=== PATIENT | female | born 1995 | race Caucasian/White ===

== ENCOUNTER 2019-12-11 00:29 | Outpatient (CLI) | payer MEDICAID, SELFPAY ==
--- NOTE | 2019-12-11 | DI.US_ITS ---
EXAM: US OB 1ST TRIMESTER CLINICAL HISTORY: ? SIZE AND DATES, Z34.91 FAX TO TECHNIQUE: Ultrasound performed using standard protocol. COMPARISON: US ABDOMEN LIMITED/FOLLOW UP US from 07/20/2015 FINDINGS: Ob ultrasound was performed utilizing 1st trimester protocol. There is a single viable intrauterine gestation with crown-rump length measurements consistent with gestational age of 9 weeks 2 days and E DC of 07/13/2020. heart rate is 168 BPM. Unremarkable appearance of the trophoblastic tissue. Presumed left ovarian corpus luteum cyst, 23 millimeters in diameter. IMPRESSION: DATA REPOSITORY:
== END 2019-12-11 00:49 ==
PROVIDERS: PCP Family Medicine; Visit Provider Family Medicine
DX: Z34.91 Encounter for supervision of normal pregnancy, unspecified, first trimester (principal)
CPT/HCPCS: 76801

== ENCOUNTER 2020-02-20 01:04 | Outpatient (CLI) | payer MEDICAID, SELFPAY ==
--- NOTE | 2020-02-20 | DI.US_ITS ---
EXAM: US OB 2-3 TRIMESTER CLINICAL HISTORY: NEW CRAMPING, SURVEY. TECHNIQUE: Transabdominal obstetrical ultrasound performed. COMPARISON: US US OB 1ST TRIMESTER from 12/11/2019 FINDINGS: Transabdominal obstetrical ultrasound performed. FINDINGS: Number of fetuses: One. position: Varied. heart rate: 144 bpm. Placental location: Anterior no evidence of previa. Amniotic fluid index: Amount of fluid is within normal limits. ANATOMICAL SURVEY: Within normal limits. BIOMETRIC DATA: BPD: 4.5cm HC: 16.9cm AC: 14.7cm FL: 3.2cm Cisterna Magna: 3 mm Cerebellum: 1.9 cm Composite Age: 19 weeks 5 days EDC by US: 07/11/2020 IMPRESSION: 1. Single live intrauterine gestation as above. 2. Normal anatomic survey. DATA REPOSITORY:
== END 2020-02-20 01:24 ==
PROVIDERS: PCP Family Medicine; Visit Provider Family Medicine
DX: R10.9 Unspecified abdominal pain (principal); Z34.92 Encounter for supervision of normal pregnancy, unspecified, second trimester
CPT/HCPCS: 76805

== ENCOUNTER 2020-07-01 17:27 | Inpatient (IN) | payer MEDICAID, SELFPAY ==
[2020-07-01 17:19] VITALS: TEMP 36.4
--- NOTE | 2020-07-01 17:56 | W.PM.OBHPL1 ---
Date of service: 07/01/20 Time of Service: 17:56 Assessment and Plan Assessment and plan (1) Obesity: Status: Chronic Qualifiers: Body mass index: BMI 40.0-44.9 Obesity classification: adult class 3 (BMI >= 40) Obesity type: due to excess calories Serious obesity comorbidity presence: without serious comorbidity Qualified Code(s): E66.01 - Morbid (severe) obesity due to excess calories; Z68.41 - Body mass index [BMI]40.0-44.9, adult (2) GDM (gestational diabetes mellitus): Status: Acute Assessment and plan: On Metformin 1000mg BID and Glipizide 10mg qHS, Qualifiers: Gestational diabetes mellitus control: oral hypoglycemic-controlled Trimester: third trimester Qualified Code(s): O24.415 - Gestational diabetes mellitus in , controlled by oral hypoglycemic drugs (3) : Status: Acute Assessment and plan: Given the numerous issues she is experiencing and planned induction next week, with her proteinuria and elevated BP I think it is best to get her delivered. We will do miso tonight with quiles bulb if possible. Plan for pitocin in the morning. Given her obesity and GDM, she is at increased risk of shoulder dystocia, and given her hypertension, she is at increased risk of PPH. Qualifiers: Weeks of gestation: 38 weeks Qualified Code(s): Z3A.38 - 38 weeks gestation of (4) Pre-eclampsia: Status: Acute Assessment and plan: BP not at pre eclamptic level but she has proteinuria and headache with labs trending toward worrisome. Qualifiers: Trimester: third trimester Qualified Code(s): O14.93 - Unspecified pre-eclampsia, third trimester OB-HPI Labor/Delivery History of Present Illness Reason for Visit: HYPERTENSION Chief Complaint: Scheduled Induction of Labor Indication for Induction: Gestational Diabetes and PreEclampsia; Signs/Symptoms Gestational HTN , Associated Signs and Symptoms of GestationalHTN: BP 140/100 yesterday, headache. MARITO Calculator Estimated Delivery Date Method Current WG Current Estimate 07/15/20 LMP (Certain) 38w 0d History of Present Expected Delivery Route/Plan Anticipate Assessment: History Reviewed & Current Narrative: Ashly is a 24y with Rh+ RI HepB- GBS-. complicated by ill defined renal issues with dehydration and recurrent UTIs and yeast infections. She was then diagnosed with GDM requiring Metforming 100mg BID and Glipizide 10mg daily for adequate control. She had last week an episode of bleeding that was determined to be urethral not vaginal, although cause remained unclear. This weekend, she reported worsening headache and BP was elevated at 140/100. This morning, she did have proteinuria, decreased platelets, increased P/C urine ratio, although BP normalized. She continued to feel unwell, and we decided to induce her at this point. Review of Systems All systems reviewed & are unremarkable except as noted in HPI and below PFSH Medical History GDM (gestational diabetes mellitus) with current . diet controlled. Obesity 05/2020. BMI 41. Post depression 2015. took meds briefly. not helpful. resolved. Family History Brother , in [place]. 2003 No problems noted. Father COPD (chronic obstructive pulmonary disease) Cirrhosis Maternal Grandfather Cancer lung cancer Mother Dementia early onset Acute Crohn's disease Sister Acute Crohn's disease Social History Smoking/Tobacco Use Status: Never Smoking risk assessment performed?: Yes Alcohol Intake: never Drug use: Never Substance use type: does not use Household members: significant other, children and other Details: Tez Freedman. 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 Sexually active: Yes History History 2 Para 1 Hx # Term Pregnancies 1 Multiple births Hx # Pregnancies Ectopic pregnancies AB induced Hx Number of Living Children 1 AB spontaneous Past Pregnancies Del. Date GA/Weeks # Outcome Route Wgt Sex Labor Lgth Anesthesia Location Prov Complic 10/29/15 41 No Successful vaginal 3061.748 g Female 6.5 hours other [facility] Delivery Date: 10/29/15 Yanique Wu Home Medications and Allergies Allergies Allergy/AdvReac Type Severity Reaction Status Date / Time No Known Allergies Allergy Verified 05/16/20 09:37 contrast dye Allergy Uncoded 06/13/20 09:46 Home Medications Medication Instructions Recorded Confirmed Type PNV cmb#95-ferrous fumarate-FA 1 tab PO DAILY 07/20/15 07/20/15 History [ Caplet] folic acid 1 tab PO DAILY 07/20/15 07/20/15 History glipizide 5 mg tablet 5 mg PO DAILY 06/13/20 History metformin 1,000 mg tablet,extended 1,000 mg PO BID 06/13/20 History release 24hr potassium chloride 10 mEq 10 meq PO DAILY 06/13/20 History capsule,extended release Exam Physical Exam Vital Signs Reviewed: Yes Detailed Labor and Delivery Exam Wei Score: Cervical Points Exam 0 1 2 3 Dilation Closed 1-2cm 3-4 cm 5-6cm Effacement 0-30% 40-50% 60-70% 80% Consistency Firm Medium Soft Station -3 -2 -1,0 +1,+2 Position Posterior Mid Anterior Respiratory Exam Respiratory Exam: Normal Cardiovascular Exam Cardiovascular Exam: Normal Abdominal Exam Abdominal Exam: Normal Detailed Abdominal Exam Abdominal: Present soft Comments: No right upper quadrant tenderness Detailed Extremities Exam Extremities: Present edema (trace bilateral edema) Detailed Neurological Exam Neurological: Present alert, oriented X3 and normal reflexes Results Results Group Beta Strep: Negative Blood Type: O+ Risk Assessment Risk for Shoulder Dystocia Historical/Initial OB: POSITIVE FOR: Pre- BMI>30 Increased Risk?: Yes Risk for Pre-Eclampsia Daily Dose ASA Indicated: No Risk for Post- Hemorrhage At Risk?: No Risks Reviewed Risks Reviewed Upon Admission: Yes
[2020-07-01 18:18] LABS: Source Nasal/Nares
[2020-07-01 18:31] VITALS: BP 123/74; PULSE 103; RESP 20; TEMP 36.5
[2020-07-01] MEDS: miSOPROStol 25 MCG TAB PO ×2 (18:40→22:45)
[2020-07-01 19:32] LABS: HCT 37.9 % (36.0-46.0); MCH 29.1 pg (27.0-33.0); MCHC 34.3 % (32.0-36.0); MCV 84.8 fL (80-95); MPV 12.4 fL (8.0-11.0); Platelet Count 176 10^3/uL (130-400); RBC 4.47 10^6/uL (3.93-5.22); RDW 13.2 % (11.7-14.6); WBC 10.07 10^3/uL (4.4-10.8)
[2020-07-01] MEDS: metFORMIN C.R. 500 MG TABCR 1000 MG PO (20:18)
[2020-07-01 21:59] LABS: COVID-19 PCR Negative (Negative)
[2020-07-01 22:27] VITALS: BP 109/67; PULSE 96; RESP 18; TEMP 36.7
[2020-07-02] VITALS (9 sets, daily range): BP systolic 112–138; BP diastolic 55–80; PULSE 82–109; RESP 16–18; TEMP 36.5–36.8; O2SAT 97–98
[2020-07-02] MEDS: miSOPROStol 25 MCG TAB PO ×2 (03:01→19:16)
--- NOTE | 2020-07-02 08:46 | PGE_ITS ---
Date of service: 07/02/20 Time of Service: 08:46 Informed Consent Informed Consent: Induction of Labor Pelvic Exam Dilation: 1.5 Effacement (%): 30 station: -3 Cervix Position: posterior Consistency: soft BISHOPS Score(Cervical Ripeness Score): 3 Vaginal Exam Presentation: Cephalic Contractions Monitor Mode: External Contraction Frequency(min): 3 Contraction Duration(sec): 90 Intensity: Mild Fetus A Monitor: External (US) Heart Rate Baseline: 140 Presentation: Cephalic Variability: Moderate (6-25 BPM) Categories: Category I FHR Rhythm: Regular Characteristics: Normal Accelerations: 15 X 15 Decelerations: None Amniotic Membrane Status: Intact Assessment and Plan Assessment and plan (1) : Status: Acute Assessment and plan: Although she is tiffany frequently, the are not adequate to produce cervical change, so I would like to start low dose Pitocin. She is comfortable with that plan. Qualifiers: Weeks of gestation: 38 weeks Qualified Code(s): Z3A.38 - 38 weeks gestation of (2) Pre-eclampsia: Status: Acute Assessment and plan: BPs have been in the normal range since admission, continue to monitor Qualifiers: Trimester: third trimester Qualified Code(s): O14.93 - Unspecified pre- eclampsia, third trimester (3) GDM (gestational diabetes mellitus): Status: Acute Assessment and plan: Fasting CBG today was 89. Continue oral meds. Qualifiers: Gestational diabetes mellitus control: oral hypoglycemic-controlled Trimester: third trimester Qualified Code(s): O24.415 - Gestational diabetes mellitus in , controlled by oral hypoglycemic drugs (4) Obesity: Status: Chronic Qualifiers: Obesity type: due to excess calories Obesity classification: adult class 3 (BMI >= 40) Serious obesity comorbidity presence: without serious comorbidity Body mass index: BMI 40.0-44.9 Qualified Code(s): E66.01 - Morbid (severe) obesity due to excess calories; Z68.41 - Body mass index [BMI]40.0-44.9, adult Objective Abnormal lab results 07/01/20 Range/Units 19:23 MPV 12.4 H (8.0-11.0) fL Temp Pulse Resp BP Pulse Ox 36.7 C 99 H 16 138/76 98 07/02/20 07:56 07/02/20 07:56 07/02/20 07:56 07/02/20 07:56 07/02/20 07:56 Laboratory Results WBC 10.07 10^3/uL (4.4-10.8) 07/01/20 19: RBC 4.47 10^6/uL (3.93-5.22) 07/01/20 19: Hgb 13.0 g/dL (11.2-15.7) 07/01/20 19: Hct 37.9 % (36.0-46.0) 07/01/20: MCV 84.8 fL (80-95) 07/01/20: MCH 29.1 pg (27.0-33.0) 07/01/20: MCHC 34.3 % (32.0-36.0) 07/01/20: RDW 13.2 % (11.7-14.6) 07/01/20 19: Plt Count 176 10^3/uL (130-400) 07/01/20: MPV 12.4 fL (8.0-11.0) H 07/01/20 19: COVID-19 Source Nasal/nares 07/01/20 17:30 SARS-CoV-2 (PCR) Negative (Negative) 07/01/20 17:30 Patient ABO/Rh O Positive 07/01/20 19: Antibody Screen Negative 07/01/20 19: Subjective Patient Reports: No new Complaints Interval history since last seen: iT is doing well. Got rest overnight. She recieved 3 doses of miso and did start tiffany on her own after the third dose. Has been having very mild ctx since 3am every 3 min. SVE 1-2/-3, minimal change. Results Hemoglobin/Hematocrit: Hgb 13.0 g/dL (11.2-15.7) 07/01/20 19: Hct 37.9 % (36.0-46.0) 07/01/20 19: Abnormal Lab Findings: Abnormal Labs 07/01/20: MPV 12.4 H
[2020-07-02 09:06] LABS: HCT 39.2 % (36.0-46.0); HGB 13.1 g/dL (11.2-15.7); MCH 28.6 pg (27.0-33.0); MCHC 33.4 % (32.0-36.0); MCV 85.6 fL (80-95); MPV 12.2 fL (8.0-11.0); Platelet Count 171 10^3/uL (130-400); RBC 4.58 10^6/uL (3.93-5.22); RDW 13.4 % (11.7-14.6); RDW-SD 41.4 fL; WBC 10.82 10^3/uL (4.4-10.8)
[2020-07-02] MEDS: Normal Saline Flush 10 ML SYR IVP (09:39)
[2020-07-02] MEDS: Lactated Ringers 1,000 ML 125 ML IV (09:40)
[2020-07-02] MEDS: Oxytocin/Normal Saline 30 UNIT/500 ML BAG 2 UNITS IV (09:40)
--- NOTE | 2020-07-02 14:34 | W.PM.OBPNV1 ---
Date of service: 07/02/20 Time of Service: 14:34 Subjective Subjective Patient comments: No complaints Exam Physical Exam Vital signs: Temp Pulse Resp BP Pulse Ox 36.6 C 92 H 18 133/80 98 07/02/20 13:58 07/02/20 13:58 07/02/20 13:58 07/02/20 13:58 07/02/20 07:56 Results Hemoglobin/Hematocrit: Hgb 13.1 g/dL (11.2-15.7) 07/02/20 09:00 Hct 39.2 % (36.0-46.0) 07/02/20 09:00 Abnormal Lab Findings: Abnormal Labs 07/01/20 07/02/20 19:23 09:00 WBC 10.82 H MPV 12.4 H 12.2 H
--- NOTE | 2020-07-02 14:35 | PGE_ITS ---
Date of service: 07/02/20 Time of Service: 14:35 Informed Consent Informed Consent: Induction of Labor Pelvic Exam Dilation: 1.5 Effacement (%): 40 station: -3 Position: OA Cervix Position: anterior Consistency: soft BISHOPS Score(Cervical Ripeness Score): 3 Vaginal Exam Presentation: Cephalic Contractions Monitor Mode: External Contraction Frequency(min): 2-3 Contraction Duration(sec): 60 Intensity: Mild Fetus A Monitor: External (US) Heart Rate Baseline: 150 Presentation: Cephalic Variability: Moderate (6-25 BPM) Categories: Category I FHR Rhythm: Regular Characteristics: Normal Accelerations: 15 X 15 Decelerations: None Amniotic Membrane Status: Intact Assessment and Plan Assessment and plan (1) : Status: Acute Assessment and plan: Although german has been tiffany every 2 minutes, they remain mild on 16u pitocin. Lucy Walker CNM was able to get a cook catheter placed, and I have stopped the pitocin. Will let her rest and allow cook to work. Anticipate restarting pitocin when cook comes out. Qualifiers: Weeks of gestation: 38 weeks Qualified Code(s): Z3A.38 - 38 weeks gestation of (2) Pre-eclampsia: Status: Acute Assessment and plan: pressures have been normal throughout her admission Qualifiers: Trimester: third trimester Qualified Code(s): O14.93 - Unspecified pre- eclampsia, third trimester (3) GDM (gestational diabetes mellitus): Status: Acute Assessment and plan: continues on oral meds. check fasting CBGs. Qualifiers: Gestational diabetes mellitus control: oral hypoglycemic-controlled Trimester: third trimester Qualified Code(s): O24.415 - Gestational diabetes mellitus in , controlled by oral hypoglycemic drugs (4) Obesity: Status: Chronic Qualifiers: Obesity type: due to excess calories Obesity classification: adult class 3 (BMI >= 40) Serious obesity comorbidity presence: without serious comorbidity Body mass index: BMI 40.0-44.9 Qualified Code(s): E66.01 - Morbid (severe) obesity due to excess calories; Z68.41 - Body mass index [BMI]40.0- 44.9, adult Objective Abnormal lab results 07/01/20 07/02/20 Range/Units 19:23 09:00 WBC 10.82 H (4.4-10.8) 10^3/uL MPV 12.4 H 12.2 H (8.0-11.0) fL Temp Pulse Resp BP Pulse Ox 36.6 C 92 H 18 133/80 98 07/02/20 13:58 07/02/20 13:58 07/02/20 13:58 07/02/20 13:58 07/02/20 07:56 Laboratory Results WBC 10.82 10^3/uL (4.4-10.8) H 07/02/20 09:00 RBC 4.58 10^6/uL (3.93-5.22) 07/02/20 09:00 Hgb 13.1 g/dL (11.2-15.7) 07/02/20 09:00 Hct 39.2 % (36.0-46.0) 07/02/20 09:00 MCV 85.6 fL (80-95) 07/02/20 09:00 MCH 28.6 pg (27.0-33.0) 07/02/20 09:00 MCHC 33.4 % (32.0-36.0) 07/02/20 09:00 RDW 13.4 % (11.7-14.6) 07/02/20 09:00 Plt Count 171 10^3/uL (130-400) 07/02/20 09:00 MPV 12.2 fL (8.0-11.0) H 07/02/20 09:00 COVID-19 Source Nasal/nares 07/01/20 17:30 SARS-CoV-2 (PCR) Negative (Negative) 07/01/20 17:30 Patient ABO/Rh O Positive 07/01/20 19:23 Antibody Screen Negative 07/01/20 19:23 Subjective Patient Reports: No new Complaints Interval history since last seen: German is doing well, has been sitting in the chair, walking, etc... Contractions remain mild. Results Hemoglobin/Hematocrit: Hgb 13.1 g/dL (11.2-15.7) 07/02/20 09:00 Hct 39.2 % (36.0-46.0) 07/02/20 09:00 Abnormal Lab Findings: Abnormal Labs 07/01/20 07/02/20 19:23 09:00 WBC 10.82 H MPV 12.4 H 12.2 H Procedure Procedures: Cervical Ripening Cervical Ripening: Campos Bulb
[2020-07-02] MEDS: Normal Saline 250 ML 120 ML (15:01)
[2020-07-02] MEDS: Acetaminophen 500 MG TAB 1000 MG PO (22:55)
[2020-07-03] VITALS (14 sets, daily range): BP systolic 94–139; BP diastolic 54–88; PULSE 47–100; RESP 17–20; TEMP 36.4–37; O2SAT 98–100
[2020-07-03] MEDS: miSOPROStol 25 MCG TAB PO (01:12)
--- NOTE | 2020-07-03 08:01 | PGE_ITS ---
Date of service: 07/03/20 Time of Service: 08:01 Informed Consent Informed Consent: Induction of Labor Pelvic Exam Dilation: 4 Effacement (%): 60 station: -3 Position: OA Cervix Position: posterior Consistency: soft BISHOPS Score(Cervical Ripeness Score): 6 Vaginal Exam Presentation: Cephalic Contractions Monitor Mode: External Contraction Frequency(min): none Fetus A Monitor: External (US) Heart Rate Baseline: 130 Presentation: Cephalic Variability: Moderate (6-25 BPM) Categories: Category I FHR Rhythm: Regular Characteristics: Normal Accelerations: 15 X 15 Decelerations: None Amniotic Membrane Status: Intact Assessment and Plan Assessment and plan (1) : Status: Acute Assessment and plan: At this point, german has recieved 3 doses of miso followed by pitocin, then cook balloon and 2 more doses of miso. She is not spontaneously tiffany at this point however her cervix is now favorable at 4/60/-3 with bulging bag. We discussed options including going home to rest and try again next week if she does not start labor on her own, but given her cervical change, we elected to restart pitocin. Qualifiers: Weeks of gestation: 38 weeks Qualified Code(s): Z3A.38 - 38 weeks gestation of (2) Pre-eclampsia: Status: Acute Assessment and plan: BPs have remained normal. Qualifiers: Trimester: third trimester Qualified Code(s): O14.93 - Unspecified pre- eclampsia, third trimester (3) GDM (gestational diabetes mellitus): Status: Acute Assessment and plan: CBG slightly elevated this morning at 92. Continue to check daily and continue oral meds. Qualifiers: Gestational diabetes mellitus control: oral hypoglycemic-controlled Trimester: third trimester Qualified Code(s): O24.415 - Gestational diabetes mellitus in , controlled by oral hypoglycemic drugs (4) Obesity: Status: Chronic Qualifiers: Obesity type: due to excess calories Obesity classification: adult class 3 (BMI >= 40) Serious obesity comorbidity presence: without serious comorbidity Body mass index: BMI 40.0-44.9 Qualified Code(s): E66.01 - Morbid (severe) obesity due to excess calories; Z68.41 - Body mass index [BMI]40.0- 44.9, adult Objective Abnormal lab results 07/02/20 Range/Units 09:00 WBC 10.82 H (4.4-10.8) 10^3/uL MPV 12.2 H (8.0-11.0) fL Temp Pulse Resp BP Pulse Ox 36.8 C 90 18 115/55 L 98 07/02/20 23:51 07/02/20 23:51 07/02/20 23:51 07/02/20 23:51 07/02/20 18:20 Laboratory Results WBC 10.82 10^3/uL (4.4-10.8) H 07/02/20 09:00 RBC 4.58 10^6/uL (3.93-5.22) 07/02/20 09:00 Hgb 13.1 g/dL (11.2-15.7) 07/02/20 09:00 Hct 39.2 % (36.0-46.0) 07/02/20 09:00 MCV 85.6 fL (80-95) 07/02/20 09:00 MCH 28.6 pg (27.0-33.0) 07/02/20 09:00 MCHC 33.4 % (32.0-36.0) 07/02/20 09:00 RDW 13.4 % (11.7-14.6) 07/02/20 09:00 Plt Count 171 10^3/uL (130-400) 07/02/20 09:00 MPV 12.2 fL (8.0-11.0) H 07/02/20 09:00 COVID-19 Source Nasal/nares 07/01/20 17:30 SARS-CoV-2 (PCR) Negative (Negative) 07/01/20 17:30 Patient ABO/Rh O Positive 07/01/20 19:23 Antibody Screen Negative 07/01/20 19:23 Subjective Patient Reports: No new Complaints Interval history since last seen: German has rested overnight. The Cook Catheter was removed after 12 hours by nursing. She recieved 2 doses of miso last night. FHT became tachicardic after the first dose, but returned to normal after about 45 minutes with some IV fluids. They have remained category 1 otherwise. No contractions over night. BP remained stable. Results Hemoglobin/Hematocrit: Hgb 13.1 g/dL (11.2-15.7) 07/02/20 09:00 Hct 39.2 % (36.0-46.0) 07/02/20 09:00 Abnormal Lab Findings: Abnormal Labs 07/01/20 07/02/20 19:23 09:00 WBC 10.82 H MPV 12.4 H 12.2 H
[2020-07-03] MEDS: Lactated Ringers 1,000 ML 125 ML IV ×2 (08:37→16:14)
[2020-07-03] MEDS: Oxytocin/Normal Saline 30 UNIT/500 ML BAG 2 UNITS IV (08:37)
[2020-07-03] MEDS: Normal Saline Flush 10 ML SYR IVP ×2 (08:44→20:13)
--- NOTE | 2020-07-03 13:14 | PGE_ITS ---
Date of service: 07/03/20 Time of Service: 13:14 Informed Consent Informed Consent: Induction of Labor Pelvic Exam Dilation: 5 Effacement (%): 80 station: -3 Position: OA Cervix Position: anterior Consistency: soft Vaginal Exam Presentation: Cephalic Contractions Monitor Mode: External Contraction Frequency(min): 5 Contraction Duration(sec): 60 Intensity: Mild Fetus A Monitor: External (US) Heart Rate Baseline: 130 Presentation: Cephalic Variability: Moderate (6-25 BPM) Categories: Category I FHR Rhythm: Regular Characteristics: Normal Accelerations: 15 X 15 Decelerations: None Assessment and Plan Assessment and plan (1) : Status: Acute Assessment and plan: Some cervical change, and baby felt well enough engaged for AROM. Clear and copious fluid and baby came down well. She felt increased intensity immediately. Pitocin at 18, hope that ROM allows better pressure on her cervix. Continue with curent management. Qualifiers: Weeks of gestation: 38 weeks Qualified Code(s): Z3A.38 - 38 weeks gestation of (2) Pre-eclampsia: Status: Acute Assessment and plan: BP normal Qualifiers: Trimester: third trimester Qualified Code(s): O14.93 - Unspecified pre- eclampsia, third trimester (3) GDM (gestational diabetes mellitus): Status: Acute Qualifiers: Gestational diabetes mellitus control: oral hypoglycemic-controlled Trimester: third trimester Qualified Code(s): O24.415 - Gestational diabetes mellitus in , controlled by oral hypoglycemic drugs (4) Obesity: Status: Chronic Qualifiers: Obesity type: due to excess calories Obesity classification: adult class 3 (BMI >= 40) Serious obesity comorbidity presence: without serious comorbidity Body mass index: BMI 40.0-44.9 Qualified Code(s): E66.01 - Morbid (severe) obesity due to excess calories; Z68.41 - Body mass index [BMI]40.0- 44.9, adult Objective Temp Pulse Resp BP Pulse Ox 36.5 C 88 18 139/77 98 07/03/20 12:32 07/03/20 12:32 07/03/20 12:32 07/03/20 12:32 07/02/20 18:20 Laboratory Results WBC 10.82 10^3/uL (4.4-10.8) H 07/02/20 09:00 RBC 4.58 10^6/uL (3.93-5.22) 07/02/20 09:00 Hgb 13.1 g/dL (11.2-15.7) 07/02/20 09:00 Hct 39.2 % (36.0-46.0) 07/02/20 09:00 MCV 85.6 fL (80-95) 07/02/20 09:00 MCH 28.6 pg (27.0-33.0) 07/02/20 09:00 MCHC 33.4 % (32.0-36.0) 07/02/20 09:00 RDW 13.4 % (11.7-14.6) 07/02/20 09:00 Plt Count 171 10^3/uL (130-400) 07/02/20 09:00 MPV 12.2 fL (8.0-11.0) H 07/02/20 09:00 COVID-19 Source Nasal/nares 07/01/20 17:30 SARS-CoV-2 (PCR) Negative (Negative) 07/01/20 17:30 Patient ABO/Rh O Positive 07/01/20 19:23 Antibody Screen Negative 07/01/20 19:23 Subjective Patient Reports: No new Complaints Interval history since last seen: Ashly is doing well, no new complaints. Contractions are mild to moderate. Results Hemoglobin/Hematocrit: Hgb 13.1 g/dL (11.2-15.7) 07/02/20 09:00 Hct 39.2 % (36.0-46.0) 07/02/20 09:00 Abnormal Lab Findings: Abnormal Labs 07/01/20 07/02/20 19:23 09:00 WBC 10.82 H MPV 12.4 H 12.2 H
--- NOTE | 2020-07-03 15:12 | PGE_ITS ---
Date of service: 07/03/20 Time of Service: 15:12 Informed Consent Informed Consent: Induction of Labor Pelvic Exam Dilation: 6 Effacement (%): 80 station: -3 Position: OA Cervix Position: anterior Consistency: soft Contractions Monitor Mode: External Fetus A Monitor: External (US) Heart Rate Baseline: 150 Presentation: Cephalic Variability: Moderate (6-25 BPM) Categories: Category I Characteristics: Normal Accelerations: 15 X 15 Amniotic Membrane Status: Ruptured Assessment and Plan Assessment and plan (1) : Status: Acute Assessment and plan: FHT has been difficult to pickling solution maker. I would like to place an FSE but was unable to do so. Dr Engle kindly assisted. IUPC also placed by me to monitor contraction adequacy. Otherwise no change in plans. Qualifiers: Weeks of gestation: 38 weeks Qualified Code(s): Z3A.38 - 38 weeks gestation of (2) Pre-eclampsia: Status: Acute Assessment and plan: BP stable Qualifiers: Trimester: third trimester Qualified Code(s): O14.93 - Unspecified pre- eclampsia, third trimester Objective Temp Pulse Resp BP Pulse Ox 36.5 C 47 L 18 132/88 98 07/03/20 12:32 07/03/20 15:10 07/03/20 12:32 07/03/20 15:10 07/02/20 18:20 Laboratory Results WBC 10.82 10^3/uL (4.4-10.8) H 07/02/20 09:00 RBC 4.58 10^6/uL (3.93-5.22) 07/02/20 09:00 Hgb 13.1 g/dL (11.2-15.7) 07/02/20 09:00 Hct 39.2 % (36.0-46.0) 07/02/20 09:00 MCV 85.6 fL (80-95) 07/02/20 09:00 MCH 28.6 pg (27.0-33.0) 07/02/20 09:00 MCHC 33.4 % (32.0-36.0) 07/02/20 09:00 RDW 13.4 % (11.7-14.6) 07/02/20 09:00 Plt Count 171 10^3/uL (130-400) 07/02/20 09:00 MPV 12.2 fL (8.0-11.0) H 07/02/20 09:00 COVID-19 Source Nasal/nares 07/01/20 17:30 SARS-CoV-2 (PCR) Negative (Negative) 07/01/20 17:30 Patient ABO/Rh O Positive 07/01/20 19:23 Antibody Screen Negative 07/01/20 19:23 Subjective Interval history since last seen: Ashly is most comfortable in positions that are difficult to trace the heart rate. She had an episode of emesis, SVE found to be 6/80/-3. Otherwise doing well. Results Hemoglobin/Hematocrit: Hgb 13.1 g/dL (11.2-15.7) 07/02/20 09:00 Hct 39.2 % (36.0-46.0) 07/02/20 09:00 Abnormal Lab Findings: Abnormal Labs 07/01/20 07/02/20 19:23 09:00 WBC 10.82 H MPV 12.4 H 12.2 H Procedure Procedures: Scalp Electrode Placement , indication for electrode: difficult to monitor
[2020-07-03] MEDS: Ondansetron 4 MG/2 ML VIAL (15:36)
--- NOTE | 2020-07-03 17:01 | PGE_ITS ---
Date of service: 07/03/20 Time of Service: 17:01 Informed Consent Informed Consent: Induction of Labor Pelvic Exam Dilation: 7 Effacement (%): 80 station: -2 Position: OA Cervix Position: anterior Consistency: soft Vaginal Exam Presentation: Cephalic Contractions Monitor Mode: Internal Contraction Frequency(min): 3 Contraction Duration(sec): 60 Intensity: Moderate IUPC resting tone (mmHg): 35 IUPC peak pressure (mmHg): 100 IUPC [place] units: 180 Fetus A Monitor: Internal (FSE) Heart Rate Baseline: 135 Presentation: Cephalic Variability: Moderate (6-25 BPM) Categories: Category I FHR Rhythm: Regular Characteristics: Normal Accelerations: 15 X 15 Decelerations: None Assessment and Plan Assessment and plan (1) : Status: Acute Assessment and plan: Ashly was feeling increased pressure, baby had come down some but she is not complete. She is considering using nitrous which may be helpful. We will continue to increase pitocin to 22u as MVU are not yet adequate. Qualifiers: Weeks of gestation: 38 weeks Qualified Code(s): Z3A.38 - 38 weeks gestation of (2) Pre-eclampsia: Status: Acute Assessment and plan: BP remains stable in the normal range Qualifiers: Trimester: third trimester Qualified Code(s): O14.93 - Unspecified pre- eclampsia, third trimester Objective Temp Pulse Resp BP Pulse Ox 37 C 47 L 18 132/88 98 07/03/20 15:40 07/03/20 15:10 07/03/20 12:32 07/03/20 15:10 07/02/20 18:20 Laboratory Results WBC 10.82 10^3/uL (4.4-10.8) H 07/02/20 09:00 RBC 4.58 10^6/uL (3.93-5.22) 07/02/20 09:00 Hgb 13.1 g/dL (11.2-15.7) 07/02/20 09:00 Hct 39.2 % (36.0-46.0) 07/02/20 09:00 MCV 85.6 fL (80-95) 07/02/20 09:00 MCH 28.6 pg (27.0-33.0) 07/02/20 09:00 MCHC 33.4 % (32.0-36.0) 07/02/20 09:00 RDW 13.4 % (11.7-14.6) 07/02/20 09:00 Plt Count 171 10^3/uL (130-400) 07/02/20 09:00 MPV 12.2 fL (8.0-11.0) H 07/02/20 09:00 COVID-19 Source Nasal/nares 07/01/20 17:30 SARS-CoV-2 (PCR) Negative (Negative) 07/01/20 17:30 Patient ABO/Rh O Positive 07/01/20 19:23 Antibody Screen Negative 07/01/20 19:23 Subjective Interval history since last seen: Ashly was feeling the urge to push with increased pressure and intensity. SVE was 7/80/-2. Baby now better engaged. Results Hemoglobin/Hematocrit: Hgb 13.1 g/dL (11.2-15.7) 07/02/20 09:00 Hct 39.2 % (36.0-46.0) 07/02/20 09:00 Abnormal Lab Findings: Abnormal Labs 07/01/20 07/02/20 19:23 09:00 WBC 10.82 H MPV 12.4 H 12.2 H
--- NOTE | 2020-07-03 19:12 | PGE_ITS ---
Date of service: 07/03/20 Time of Service: 19:12 Informed Consent Informed Consent: Induction of Labor Pelvic Exam Dilation: 8 Effacement (%): 80 station: -2 Position: OA Cervix Position: anterior Consistency: soft Vaginal Exam Presentation: Cephalic Contractions Monitor Mode: Internal Contraction Frequency(min): 2-5 Contraction Duration(sec): 60 Intensity: Moderate/Strong Fetus A Monitor: Internal (FSE) Heart Rate Baseline: 150 Presentation: Cephalic Variability: Moderate (6-25 BPM) Categories: Category I FHR Rhythm: Regular Characteristics: Normal Accelerations: 15 X 15 Decelerations: None Assessment and Plan Assessment and plan (1) : Status: Acute Assessment and plan: Ashly is getting fatigued and making very slow progress. Baby is not well engaged and likely asynclitic. Pitocin is at 28u and contractions are still not consistently adequate. She declines epidural. We are attempting frequent position changes. We will continue to monitor but consider the need for should baby not come down. Qualifiers: Weeks of gestation: 38 weeks Qualified Code(s): Z3A.38 - 38 weeks gestation of (2) Pre-eclampsia: Status: Acute Assessment and plan: BP stable Qualifiers: Trimester: third trimester Qualified Code(s): O14.93 - Unspecified pre- eclampsia, third trimester Objective Temp Pulse Resp BP Pulse Ox 37 C 95 H 18 138/73 98 07/03/20 15:40 07/03/20 18:25 07/03/20 12:32 07/03/20 18:25 07/02/20 18:20 Laboratory Results WBC 10.82 10^3/uL (4.4-10.8) H 07/02/20 09:00 RBC 4.58 10^6/uL (3.93-5.22) 07/02/20 09:00 Hgb 13.1 g/dL (11.2-15.7) 07/02/20 09:00 Hct 39.2 % (36.0-46.0) 07/02/20 09:00 MCV 85.6 fL (80-95) 07/02/20 09:00 MCH 28.6 pg (27.0-33.0) 07/02/20 09:00 MCHC 33.4 % (32.0-36.0) 07/02/20 09:00 RDW 13.4 % (11.7-14.6) 07/02/20 09:00 Plt Count 171 10^3/uL (130-400) 07/02/20 09:00 MPV 12.2 fL (8.0-11.0) H 07/02/20 09:00 COVID-19 Source Nasal/nares 07/01/20 17:30 SARS-CoV-2 (PCR) Negative (Negative) 07/01/20 17:30 Patient ABO/Rh O Positive 07/01/20 19:23 Antibody Screen Negative 07/01/20 19:23 Subjective Interval history since last seen: Ashly is very tired, and starting to struggle emotionally a bit. She is not progressing as we would like and is feeling a bit defeated. She is using nitrous for pain which is helpful. She declines epidural. Results Hemoglobin/Hematocrit: Hgb 13.1 g/dL (11.2-15.7) 07/02/20 09:00 Hct 39.2 % (36.0-46.0) 07/02/20 09:00 Abnormal Lab Findings: Abnormal Labs 07/01/20 07/02/20 19:23 09:00 WBC 10.82 H MPV 12.4 H 12.2 H
--- NOTE | 2020-07-03 20:27 | PGE_ITS ---
Date of service: 07/03/20 Time of Service: 20:27 Informed Consent Informed Consent: Induction of Labor Pelvic Exam Dilation: 8 Effacement (%): 90 station: -2 Position: OA Cervix Position: anterior Consistency: soft Vaginal Exam Presentation: Cephalic Contractions Monitor Mode: Internal Contraction Frequency(min): 5 Contraction Duration(sec): 60 Intensity: Moderate/Strong Fetus A Monitor: Internal (FSE) Presentation: Cephalic Variability: Moderate (6-25 BPM) Categories: Category I FHR Rhythm: Regular Characteristics: Normal Accelerations: 15 X 15 Decelerations: None Assessment and Plan Assessment and plan (1) : Status: Acute Assessment and plan: Ashly has been at 8 cm for several hours now and baby has not decended. She is exhausted. We discussed the situation and Dr Engle also assessed. We made the determination to go to section. FHT has been category 1 throughout. Baby is doing quite well. We will call the team in and proceed to the OR. Qualifiers: Weeks of gestation: 38 weeks Qualified Code(s): Z3A.38 - 38 weeks gestation of (2) Pre-eclampsia: Status: Acute Assessment and plan: BP remains stable. Qualifiers: Trimester: third trimester Qualified Code(s): O14.93 - Unspecified pre- eclampsia, third trimester Objective Temp Pulse Resp BP Pulse Ox 36.8 C 88 20 130/78 98 07/03/20 19:35 07/03/20 19:38 07/03/20 19:35 07/03/20 19:38 07/02/20 18:20 Laboratory Results WBC 10.82 10^3/uL (4.4-10.8) H 07/02/20 09:00 RBC 4.58 10^6/uL (3.93-5.22) 07/02/20 09:00 Hgb 13.1 g/dL (11.2-15.7) 07/02/20 09:00 Hct 39.2 % (36.0-46.0) 07/02/20 09:00 MCV 85.6 fL (80-95) 07/02/20 09:00 MCH 28.6 pg (27.0-33.0) 07/02/20 09:00 MCHC 33.4 % (32.0-36.0) 07/02/20 09:00 RDW 13.4 % (11.7-14.6) 07/02/20 09:00 Plt Count 171 10^3/uL (130-400) 07/02/20 09:00 MPV 12.2 fL (8.0-11.0) H 07/02/20 09:00 COVID-19 Source Nasal/nares 07/01/20 17:30 SARS-CoV-2 (PCR) Negative (Negative) 07/01/20 17:30 Patient ABO/Rh O Positive 07/01/20 19:23 Antibody Screen Negative 07/01/20 19:23 Subjective Interval history since last seen: Ashly is exhausted and has not progressed significantly in the last several hours. Results Hemoglobin/Hematocrit: Hgb 13.1 g/dL (11.2-15.7) 07/02/20 09:00 Hct 39.2 % (36.0-46.0) 07/02/20 09:00 Abnormal Lab Findings: Abnormal Labs 07/01/20 07/02/20 19:23 09:00 WBC 10.82 H MPV 12.4 H 12.2 H
--- NOTE | 2020-07-03 20:36 | OBCE_ITS ---
Date of service: 07/03/20 Time of Service: 20:37 Assessment and Plan Assessment and plan (1) : Status: Acute Qualifiers: Weeks of gestation: 38 weeks Qualified Code(s): Z3A.38 - 38 weeks gestation of (2) GDM (gestational diabetes mellitus): Status: Acute Assessment and plan: On oral hypoglycemics Qualifiers: Gestational diabetes mellitus control: oral hypoglycemic-controlled Trimester: third trimester Qualified Code(s): O24.415 - Gestational diabetes mellitus in , controlled by oral hypoglycemic drugs (3) Obesity: Status: Chronic Qualifiers: Obesity type: due to excess calories Obesity classification: adult class 3 (BMI >= 40) Serious obesity comorbidity presence: without serious comorbidity Body mass index: BMI 40.0-44.9 Qualified Code(s): E66.01 - Morbid (severe) obesity due to excess calories; Z68.41 - Body mass index [BMI]40.0- 44.9, adult (4) Arrested labor: Status: Acute Assessment and plan: Patient is a 24-year-old female who has had care via family practice at [facility]. course has been complicated by somewhat abnormal renal function with nephrology consult. She also had elevated blood glucose towards the end of her and was diagnosed with gestational diabetes for which she has been on oral hypoglycemics. She was admitted for labor induction at 38 weeks gestation due to elevated blood pressure in the office of 140/100 with cephalgia along with an abnormal protein to creatinine ratio. Initially she received misoprostol for cervical ripening and subsequent Pitocin augmentation of labor with no success. Second night she received a Cook Campos catheter for which she became dilated approximately 4 cm and subsequently had artificial rupture of membranes and Pitocin augmentation to a maximum of 30 milliunits. I was called to evaluate the patient earlier for placement of scalp lead electrode due to difficulty in continuous monitoring while patient was changing positions. At that point she was found to be approximately 6 cm with vertex at a -3 station. She continued to labor and become significantly more uncomfortable however her labor has now arrested at 8 cm -2 station with no significant caput or molding. The risk benefits and alternatives of continuing her labor augmentation versus section were explained to the patient in full informed consent for primary section was obtained. She does understand the risk of infection, bleeding, injury to surrounding organs, risk of thromboembolism. She will receive prophylactic antibiotics preoperatively along with PAS stockings for decrease risk for thromboembolism and early ambulation postoperative. In light of that she has had a long labor induction she is at high risk for hemorrhage and we will aggressively manage her third stage with contractile agents. Anesthesia was notified. Nursing molding room supervisor also notified for calling the OR crew including a PA assist for an urgent, not emergent section History of Present Illness History of Present Illness Chief Complaint: Labor arrest Consults Consult date: 07/03/20 Requesting physician: Nolan Valera Review of Systems All systems reviewed & are unremarkable except as noted in HPI and below Constitutional Constitutional: Reports as per HPI Cardiovascular Cardiovascular: Reports system reviewed and no additional complaints, except as documented Respiratory Respiratory: Reports system reviewed and no additional complaints, except as documented Genitourinary Comments: Painful regular contractions and maternal exhaustion Psychiatric Psychiatric: Reports system reviewed and no additional complaints, except as documented [facility] Medical History GDM (gestational diabetes mellitus) with current . diet controlled. Obesity 05/2020. BMI 41. Post depression 2015. took meds briefly. not helpful. resolved. Family History Brother , in [place]. 2003 No problems noted. Father COPD (chronic obstructive pulmonary disease) Cirrhosis Maternal Grandfather Cancer lung cancer Mother Dementia early onset Acute Crohn's disease Sister Acute Crohn's disease Social History Smoking/Tobacco Use Status: Never Smoking risk assessment performed?: Yes Alcohol Intake: never Drug use: Never Substance use type: does not use Household members: significant other, children and other Details: Tez Freedman. 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 Sexually active: Yes Do you feel safe at home: Yes Do you feel safe in your relationship?: Yes History History 2 Para 1 Hx # Term Pregnancies 1 Multiple births Hx # Pregnancies Ectopic pregnancies AB induced Hx Number of Living Children 1 AB spontaneous Past Pregnancies Del. Date GA/Weeks # Outcome Route Wgt Sex Labor Lgth [facility]esthes [facility] No Successful vaginal 6 lb 12 oz Female 6.5 hours other [facility] Delivery Date: 10/29/15 Yanique Wu Exam Narrative Exam Narrative: Alert oriented no acute distress, uncomfortable with uterine contractions Eyes General: appearance normal, both eyes and all related structures Resp Effort & Inspection: normal respiratory effort Cardio Rate: regular rate Rhythm: regular rhythm GI Inspection: normal to inspection Manual OB Exam: dilated, effaced 75% and station -2 Amniotic Fluid: clear Results Last Vital Signs Temp 98.2 F 07/03/20 19:35 Pulse 88 07/03/20 19:38 Resp 20 07/03/20 19:35 BP 130/78 07/03/20 19:38 Pulse Ox 98 07/02/20 18:20 Labs Result diagrams: 07/02/20 09:00
[2020-07-03] MEDS: fentaNYL 100 MCG/2 ML VIAL 20 MCG IT (21:20)
[2020-07-03] MEDS: ceFAZolin 2 GM/50 ML BAG IVPB (21:31)
[2020-07-03] MEDS: AZITHROMYCIN 500 MG in Normal Saline 250 ML 250 MG IVPB (21:31)
--- NOTE | 2020-07-03 23:02 | PDOC.OPNB_ITS ---
Date of service: 07/03/20 Time of Service: 23:02 Operative Note Operative Note Delivery Method: Unscheduled Category: Urgent DATE OF PROCEDURE: 07/03/20 PRE-OP DIAGNOSES: 2 para 1, failed induction, arrest of labor POST-OP DIAGNOSES: same Same with occiput transverse PROCEDURE: Primary low transverse section SURGEON: Denise Engle Instrument Technician Apprentice: Christine Felton Anesthesia: spinal Estimated blood loss (mL): 600 Pathology: none sent Complications: None Patient was transported to: floor Patient's condition: stable Indications: Labor arrest Findings: Delivery of viable male infant, persistent occiput transverse, weight and Apgars per nursing Procedure Description: Patient is a 24-year-old female 2 para 1 who had care at [facility]. She had induction of labor at 38 weeks due to gestational hypertension and gestational diabetes. She was noted in the office at 38 weeks to have elevated blood pressure of 140/100 with an abnormal protein creatinine ratio and cephalgia. For this reason she was admitted to [facility] for cervical ripening. She received misoprostol overnight followed by Pitocin throughout the day. She had no cervical change at that point and subsequent evening received a Cook catheter for cervical dilation and cervical ripening. She dilated to the point that she was approximately 4 cm. She had Pitocin augmentation of her labor subsequent to this and artificial rupture of membranes for clear fluid. She had a Pitocin which maxed at 30 milliunits with full internal monitors. She had a labor arrest at 8 cm with vertex at -2 to -2 station and cervix that was approximately 76% effaced. In light of her labor arrest, I was asked to see the patient for potential delivery options. She was given risks, alternatives, and benefits of section versus continued labor and she opted for section. She understood the risk of infection, bleeding, injury to surrounding organs risk of thromboembolism and risk of anesthesia. She is taken the operating suite with an IV running where she is placed in the seated position and spinal anesthesia administered tested and found be adequate. She was then placed in the dorsal supine position with leftward tilt and prepped and draped in usual sterile fashion including vaginal preparation. Campos catheter was inserted for continuous bladder drainage. Cervical exam just prior to delivery showed persistently 8 cm dilated with a 70% effaced cervix. heart tones were confirmed at 145 prior to draping. At this point Pfannenstiel skin incision was made carried down to the underlying fascia which was nicked in the midline extended laterally. The fascial incision was then split off of the rectus muscles rectus muscle split in the midline aleksey toneum identified tented up and entered sharply. At this point the bladder blade was inserted and the vesicouterine peritoneum identified tented up and entered sharply. Bladder flap was created and the bladder blade reinserted. A low transverse uterine incision was made with a scalpel and extended bluntly laterally. The vertex was delivered from the occiput transverse position. There was no evidence of nuchal cord and shoulders followed with ease. Three- vessel cord was noted clamped x2 and cut and the was handed off to the waiting pediatric provider. At this point cord blood sample and cord blood gases obtained and the placenta was manually expressed from the uterus. The uterus was then exteriorized and cleared of all clot and debris. Uterine incision was closed in a 2 layer closure of 0 Monocryl suture first with a running locked stitch second with an imbricating stitch. Uterine incision was inspected and found to be hemostatic. Ovaries and tubes were also normal. The uterus was then returned to the abdomen abdomen irrigated with copious amounts of normal saline and the uterine incision reinspected and found to be hemostatic. Fascial incision was then closed using 0 Vicryl suture in a running fashion subcutaneous tissue is irrigated with copious amounts of normal saline. Subcu tissue was closed with 0 Vicryl in a simple interrupted fashion and the sk in edge then reapproximated with 4-0 Monocryl in a subcuticular fashion. Skin affix was placed as was a sterile dressing. Uterus was found to be firm and approximately 3 cm below the umbilicus. Patient was taken to recovery room to the floor with baby in hand with a Campos catheter draining clear yellow urine. Complications none apparent EBL: 600 mL Fluids: Crystalloid per anesthesia Findings: Delivered viable male infant from the occiput transverse position Infant Gender: Male
[2020-07-04] VITALS (9 sets, daily range): BP systolic 97–129; BP diastolic 62–80; PULSE 89–96; RESP 14–20; TEMP 36.3–36.6; O2SAT 94–98
[2020-07-04] MEDS: Ketorolac 30 MG/ML VIAL IVP ×4 (00:25→18:05)
[2020-07-04] MEDS: Acetaminophen 500 MG TAB 1000 MG PO (02:36)
[2020-07-04] MEDS: Lactated Ringers 1,000 ML 120 ML IV (02:37)
[2020-07-04 06:51] LABS: Abs Immature Grans 0.06 10^3/uL (0.0-0.06); Absolute Basophil Count 0.03 10^3/uL (0.0-0.2); Absolute Monocyte Count 1.27 10^3/uL (0.1-0.8); Basophils % 0.2; Eosinophils % 0.1; HCT 31.8 % (36.0-46.0); HGB 10.9 g/dL (11.2-15.7); Immature Grans % 0.4; Lymphocytes % 8.5; MCH 29.1 pg (27.0-33.0); MCHC 34.3 % (32.0-36.0); MCV 84.8 fL (80-95); Monocytes % 7.5; Neutrophils % 83.3; Nucleated RBC 0 %; Platelet Count 172 10^3/uL (130-400); RBC 3.75 10^6/uL (3.93-5.22); RDW 13.3 % (11.7-14.6); RDW-SD 40.8 fL
[2020-07-04 06:56] LABS: Absolute Eosinophil Count 0.02 10^3/uL (0.0-0.7); Absolute Lymphocyte Count 1.44 10^3/uL (1.2-3.4); Absolute Neutrophil Count 14.08 10^3/uL (1.2-6.7)
--- NOTE | 2020-07-04 08:03 | OBPPV_ITS ---
Date of service: 07/04/20 Time of Service: 08:04 Assessment and Plan Assessment and plan (1) Status post primary low transverse section: Status: Acute Assessment and plan: Postoperative day #1 status post primary low transverse section for labor arrest. She is doing well. Campos catheter will be discontinued today, saline lock. Increase ambulation and activity. Regular diet. Continue breast-feeding. Routine postoperative care. (2) Arrested labor: Status: Acute (3) GDM (gestational diabetes mellitus): Status: Acute Qualifiers: Gestational diabetes mellitus control: oral hypoglycemic-controlled Trimester: third trimester Qualified Code(s): O24.415 - Gestational diabetes mellitus in , controlled by oral hypoglycemic drugs Subjective Subjective Interval history: Patient seen and examined this morning postoperative day #1. She is doing well. Pain is well controlled. She is nursing without much difficulty. She is concerned about bowel function in light of the fact that she has not had a bowel movement for the past couple days and Colace will be ordered. Patient comments: No complaints and Pain well controlled baby status: Doing well, Rooming in and Strong Bonding Observed [place] feeding status: Exclusively breast feeding Exam Physical Exam Vital signs: Temp Pulse Resp BP Pulse Ox 97.7 F 93 H 18 111/69 96 07/04/20 06:15 07/04/20 06:15 07/04/20 06:15 07/04/20 06:15 07/04/20 06:15 Constitutional Constitutional: no acute distress HEENT Exam HEENT Exam: Normal Respiratory Exam Respiratory Exam: Normal Cardiovascular Exam Cardiovascular Exam: Normal Abdominal Exam Comments: Incision clean dry intact, dressed Fundal Exam Fundus: Below Umbilicus and Firm Comment: Uterus is nontender Extremities Exam Extremity Exam: Normal; negative Calf Tenderness Comment: PAS stockings in place Skin Exam Skin Exam: Normal DetailedPsychiatric Exam Psych Exam: Normal Affect, Normal Thougth Process, Cooperative, Good Insight and Good Judgement Results Hemoglobin/Hematocrit: Hgb 10.9 g/dL (11.2-15.7) L D 07/04/20 06:35 Hct 31.8 % (36.0-46.0) L 07/04/20 06:35 Abnormal Lab Findings: Abnormal Labs 07/01/20 07/02/20 07/04/20 19:23 09:00 06:35 WBC 10.82 H 16.90 H RBC 3.75 L Hgb 10.9 L D Hct 31.8 L MPV 12.4 H 12.2 H 12.0 H Absolute Neutrophils 14.08 H Absolute Monocytes 1.27 H
[2020-07-04] MEDS: Docusate Sodium 100 MG CAP PO ×2 (08:19→18:05)
[2020-07-04] MEDS: Acetaminophen 325 MG TAB 650 MG PO ×2 (08:19→23:20)
[2020-07-04] MEDS: Normal Saline Flush 10 ML SYR IVP (12:08)
[2020-07-04] MEDS: oxyCODONE 5 mg/Acetaminophen 325 mg TAB PO (20:01)
[2020-07-05] MEDS: oxyCODONE 5 mg/Acetaminophen 325 mg TAB PO ×3 (00:17→13:08)
[2020-07-05] MEDS: Ibuprofen 600 MG TAB PO ×3 (00:17→14:34)
[2020-07-05 00:21] VITALS: BP 133/83; PULSE 97; RESP 18; TEMP 36.5; O2SAT 99
--- NOTE | 2020-07-05 00:43 | NUR.NOTE ---
Pt stated she voided. Nursing Note:
[2020-07-05 05:17] VITALS: BP 131/81; PULSE 91; RESP 18; TEMP 36.5; O2SAT 98
[2020-07-05] MEDS: Docusate Sodium 100 MG CAP PO (05:59)
[2020-07-05 07:40] VITALS: BP 101/69; PULSE 101; RESP 16; TEMP 36.6; O2SAT 98
--- NOTE | 2020-07-05 09:10 | W.PM.OBPNV1 ---
Date of service: 07/05/20 Time of Service: 09:10 Assessment and Plan Assessment and plan (1) Status post primary low transverse section: Status: Acute Assessment and plan: Postoperative day #2 status post primary low transverse section for labor arrest. Doing well. Discharge home today. Normal restrictions. Pelvic rest for 6 weeks. Follow-up in the office in 1 to 2 weeks. Prescription sent to the pharmacy. Subjective Subjective Interval history: Patient seen postoperative day #2 ambulating, tolerating very diet and oral pain medication with stable vital signs. She is breast-feeding without difficulty. Patient comments: No complaints, Pain well controlled, Incisional pain, Tolerating diet and Flatus present [place] baby status: Doing well, Nursing well and Strong Bonding Observed [place] feeding status: Exclusively breast feeding Exam Physical Exam Vital signs: Temp Pulse Resp BP Pulse Ox 97.7 F 91 H 18 131/81 98 07/05/20 05:17 07/05/20 05:17 07/05/20 05:17 07/05/20 05:17 07/05/20 05:17 Constitutional Constitutional: no acute distress and obese HEENT Exam HEENT Exam: Normal Respiratory Exam Respiratory Exam: Normal Cardiovascular Exam Cardiovascular Exam: Normal Abdominal Exam Abdomen: Other Comments: Soft, nontender, incision clean dry intact. Dressing is on. Fundal Exam Fundus: Below Umbilicus and Firm Extremities Exam Extremity Exam: Normal and Edema (1+); negative Calf Tenderness Skin Exam Skin Exam: Normal DetailedPsychiatric Exam Psych Exam: Normal Affect, Normal Thougth Process, Cooperative, Good Insight and Good Judgement Results Hemoglobin/Hematocrit: Hgb 10.9 g/dL (11.2-15.7) L D 07/04/20 06:35 Hct 31.8 % (36.0-46.0) L 07/04/20 06:35 Abnormal Lab Findings: Abnormal Labs 07/01/20 07/02/20 07/04/20 19:23 09:00 06:35 WBC 10.82 H 16.90 H RBC 3.75 L Hgb 10.9 L D Hct 31.8 L MPV 12.4 H 12.2 H 12.0 H Absolute Neutrophils 14.08 H Absolute Monocytes 1.27 H
--- NOTE | 2020-07-05 09:18 | W.PM.DS.N ---
Date of service: 07/05/20 Time of Service: 09:18 DS: Diagnosis Discharge Diagnosis (1) Status post primary low transverse section: Status: Acute Discharge Plan Disposition Patient Disposition: HOME Condition: Good Discharge Details Reason For Visit: HYPERTENSION Admit Date/Time: 07/01/20 17:27 Admit Provider: Nolan Valera Attending Provider: Nolan Valera Primary Care Provider: Gali Ferrer [facility] Course Hospital Course: Patient is a 24-year-old female who had care at [facility]. She had a labor induction attempted at 38 weeks due to gestational hypertension. had been complicated by gestational diabetes. She received cervical ripening her first night in the hospital with subsequent Pitocin augmentation with no cervical change. She received a Campos balloon, Cook catheter for cervical dilation and cervical ripening followed by rupture of membranes and Pitocin augmentation. She arrested her labor at 8 cm and underwent primary low transverse section. She had uncomplicated section and uncomplicated postoperative course and was discharged home postoperative day #2 ambulating, tolerating a regular diet and oral pain medication with stable vital signs. Home Meds and New Rx's Prescriptions: New ibuprofen 800 mg tablet 800 mg PO Q8H PRNQty: 60 RF: 1 oxycodone-acetaminophen [Percocet] 5-325 mg tablet 1 tab PO TID PRNQty: 10 RF: 0 docusate sodium [Colace] 100 mg capsule 100 mg PO BID Qty: 30 RF: 0 Continued potassium chloride 10 mEq capsule, extended release 10 meq PO DAILY RF: 0 folic acid 400 MCG tablet 1 tab PO DAILY RF: 0 PNV cmb#95-ferrous fumarate-FA [] 1 EACH tablet 1 tab PO DAILY RF: 0 Discontinued metformin 1,000 mg tablet extended release 24hr 1,000 mg PO BID RF: 0 glipizide 5 mg tablet 10 mg PO DAILY RF: 0 Discharge Instructions Stand Alone Forms: BC Discharge Instruc Activity:: Activity as Tolerated Equipment/Supplies:: No Equipment Needed Diet:: As Tolerated Discharge Orders Discharge Orders: Discharge Order (Routine); Ordered 07/05/20 Ordered By: Denise Engle DS: Summary Time Spent with Patient providing and/or coordinating discharge services: Less than 30 minutes Status at Discharge Functional status at discharge: independent ambulation Overall status at discharge: patient is progressing back to baseline Mental Status: mental status grossly normal Speech and Movement: speech and movement normal Mood: congruent mood Affect: normal affect Exam Narrative Exam Narrative: See physical exam from progress note dated 07/05/2020 Psych Mental Status: mental status grossly normal Speech and Movement: speech and movement normal Mood: congruent mood Affect: normal affect DS: Data Vitals/I&O Vitals and I&O: Vital Signs Temperature 97.7 F 07/05/20 05:17 Temperature Source Oral 07/04/20 12:50 Pulse 91 H 07/05/20 05:17 Pulse Rhythm Regular 07/04/20 20:21 Respiratory Rate 18 07/05/20 05:17 Blood Pressure 131/81 07/05/20 05:17 Blood Pressure Mean 97 07/05/20 05:17 Pulse Oximetry 98 07/05/20 05:17 Oxygen Delivery Method Room Air 07/04/20 12:50 Oxygen Flow Rate 0 07/04/20 12:50 Pain Level 6 07/05/20 05:59 Intake & Output 07/04/20 07/04/20 07/05/20 11:59 23:59 11:59 Intake Total 975.602 / 3335.602 2110 / 3335.602 250 / 250 Output Total 650 / 2250 1600 / 2250 Balance 325.602 / 1085.602 510 / 1085.602 250 / 250 Intake: IV 575.602 / 585.602 10 / 585.602 Oral 400 / 2750 2100 / 2750 250 / 250 Output: Urine 650 / 2250 1600 / 2250 Other: Urine Color Yellow Yellow Urine Appearance Clear Clear Urine Odor None Voiding Methods Toilet Toilet [facility] Medical History (Updated 07/03/20 @ 20:41 by Denise Engle DO) Arrested labor GDM (gestational diabetes mellitus) with current . diet controlled. Obesity 05/2020. BMI 41. Post depression 2016. took meds briefly. not helpful. resolved. Surgical History (Updated 07/04/20 @ 08:06 by Denise Engle DO) Status post primary low transverse section Family History Brother , in [place]. 2003 No problems noted. Father COPD (chronic obstructive pulmonary disease) Cirrhosis Maternal Grandfather Cancer lung cancer Mother Dementia early onset Acute Crohn's disease Sister Acute Crohn's disease Social History Smoking/Tobacco Use Status: Never Smoking risk assessment performed?: Yes Alcohol Intake: never Drug use: Never Substance use type: does not use Household members: significant other, children and other Details: [employer]- [employer]. 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 Sexually active: Yes Do you feel safe at home: Yes Do you feel safe in your relationship?: Yes History History 2 Para 1 Hx # Term Pregnancies 1 Multiple births Hx # Pregnancies Ectopic pregnancies AB induced Hx Number of Living Children 1 AB spontaneous Past Pregnancies Del. Date GA/Weeks # Outcome Route Wgt Sex Labor Lgth Anesthesia Location Prov Complic 10/29/15 41 No Successful vaginal 6 lb 12 oz Female 6.5 hours other [facility] Delivery Date: 10/29/15 Yanique Wu
[2020-07-05 13:04] VITALS: BP 119/75; PULSE 103; RESP 17; TEMP 36.7; O2SAT 97
== END 2020-07-05 17:00 | disposition home or self-care (01) | DRG 788 ==
PROVIDERS: Obstetrics & Gynecology; Admitting Provider Family Medicine; PCP Family Medicine; Visit Provider Family Medicine
PROC: 10D00Z1 Extraction of Products of Conception, Low, Open Approach (ICD-10-PCS; CPT 59514; principal; 2020-07-03 21:00)
DX: Z37.0 Single live birth; Z3A.38 38 weeks gestation of pregnancy; O62.1 Secondary uterine inertia; O24.425 Gestational diabetes mellitus in childbirth, controlled by oral hypoglycemic drugs; O13.4 Gestational [pregnancy-induced] hypertension without significant proteinuria, complicating childbirth; O61.1 Failed instrumental induction of labor; E66.01 Morbid (severe) obesity due to excess calories; O99.214 Obesity complicating childbirth
CPT/HCPCS: 59514; 36415; 85027; 86850; 86900; 86901; 87635; 99238; 99253; 59200; 85025; J0456; J0690; J1885; J2370; J2405; J3010; J3490

== ENCOUNTER 2020-08-19 01:55 | Outpatient (CLI) | payer MEDICAID, SELFPAY ==
[2020-08-19 12:00] LABS: Source Nasal/Nares
[2020-08-19 21:59] LABS: COVID-19 PCR Negative (Negative)
== END 2020-08-19 01:56 | disposition home or self-care (01) ==
LOC: LBO 01:55
PROVIDERS: PCP Nurse Practitioner Family; Visit Provider Obstetrics & Gynecology
DX: Z30.2 Encounter for sterilization (principal); Z20.822 Contact with and (suspected) exposure to COVID-19; Z01.818 Encounter for other preprocedural examination; Z01.812 Encounter for preprocedural laboratory examination
CPT/HCPCS: 36415; 85027; 86850; 86900; 86901; 87635

== ENCOUNTER 2020-08-21 06:03 | Day surgery (SDC) | payer MEDICAID, SELFPAY ==
[2020-08-21] VITALS (7 sets, daily range): BP systolic 106–135; BP diastolic 72–89; PULSE 71–90; RESP 16–21; TEMP 36–36.6; O2SAT 94–98; BMI 41.2
[2020-08-21] MEDS: Lactated Ringers 1,000 ML 125 ML IV (06:54)
--- NOTE | 2020-08-21 07:11 | ANES.PREOP_ITS ---
General Info Date of Service Date Performed: 08/21/20 Height: 5 ft 9 in Weight: 126.7 kg Body Mass Index (BMI): 41.2 Surgical Procedure: Operation Date: 08/21/20 07:40 Proposed Procedures Side Surgeon p Salpingectomy Laparoscopic Denise Engle DO Meds Allergies and Home Medications Allergies Allergy/AdvReac Type Severity Reaction Status Date / Time No Known Allergies Allergy Verified 08/21/20 06:14 contrast dye Allergy Severe Anaphylaxis Uncoded 08/21/20 06:14 Home Medication Medication Instructions Recorded Unknown [No Known Home Meds] 07/16/20 Current Visit Medications: Current Medications Generic Name Dose Route Start Last Admin Trade Name Freq PRN Reason Stop Dose Admin Ringer's Solution 1,000 mls @ 125 mls/hr 08/21/20 06:00 08/21/20 06:54 IV 09/19/20 23:59 125 mls/hr INFUSION ANURADHA Administration IV Miscellaneous Supplies 1 each 08/21/20 06:00 Iv Access IV 09/19/20 23:59 DIRECTED ANURADHA Sodium Chloride 0 ml 08/21/20 06:00 Normal Saline Flush 10 Ml Syr IV 09/19/20 23:59 PRN PRN Sodium Chloride 0 ml 08/21/20 06:00 Normal Saline 10 Ml Vial IJ 09/19/20 23:59 DIRECTED PRN Sterile Water 0 ml 08/21/20 06:00 Water,Injection,Sterile 10 Ml Vial IJ 09/19/20 23:59 DIRECTED PRN PFSH Active Problems Active Problems: Problem Status Onset Code Status post primary low transverse section Z98.891 Obesity E66.9 Medical History Medical History Arrested labor GDM (gestational diabetes mellitus) with current . diet controlled. Obesity 05/2020. BMI 41. Post depression 2015. took meds briefly. not helpful. resolved. Surgical History Surgical History Status post primary low transverse section Tobacco Smoking/Tobacco Use Status: Never Alcohol Alcohol Intake: never Substance Use Substance use: Never Substance use type: does not use Prental History History 2 Para 1 Hx # Term Pregnancies 1 Multiple births Hx # Pregnancies Ectopic pregnancies AB induced Hx Number of Living Children 1 AB spontaneous Past Pregnancies Del. Date GA/Weeks # Outcome Route Wgt Sex Labor Lgth Anesthes ia Location Prov Complic 10/29/15 41 No Successful vaginal 3061.748 g Female 6.5 hours other [facility] 07/03/20 38 No Successful 3515.341 g Male Delivery Date: 10/29/15 Yanique Wu Delivery Date: 07/03/20 No notes to display Vital Signs and Lab Results Vital Signs Most Recent Vital Signs in EMR: Most Recent Vital Signs Temp Pulse Resp BP Pulse Ox 36.6 C 90 18 121/72 97 08/21/20 06:10 08/21/20 06:10 08/21/20 06:10 08/21/20 06:10 08/21/20 06:10 Point of Care Results Point of Care Results: POC- Test(urine) Negative 08/21/20 06:53 Lab Results Blood Type / Crossmatch: Patient ABO/Rh O Positive 08/19/20 09:46 08/19/20 Antibody Screen Negative 08/19/20 09:46 08/19/20 Complete Blood Count: White Blood Count 7.23 10^3/uL (4.4-10.8) 08/19/20 09:46 08/19/20 Red Blood Count 4.51 10^6/uL (3.93-5.22) 08/19/20 09:46 08/19/20 Hemoglobin 12.7 g/dL (11.2-15.7) 08/19/20 09:46 08/19/20 Hematocrit 38.3 % (36.0-46.0) 08/19/20 09:46 08/19/20 Platelet Count 209 10^3/uL (130-400) 08/19/20 09:46 08/19/20 Complete Metabolic Panel: Sodium Level 139 mmol/L (136-145) 07/20/15 15:18 07/20/15 Potassium Level 3.2 mmol/L (3.5-5.1) L 07/20/15 15:18 07/20/15 Chloride Level 101 mmol/L (98-107) 07/20/15 15:18 07/20/15 Carbon Dioxide Level 26.6 mmol/L (21.0-32.0) 07/20/15 15:18 07/20/15 Blood Urea Nitrogen 6 mg/dL (7-18) L 07/20/15 15:18 07/20/15 Creatinine 0.43 mg/dL (0.55-1.02) L 07/20/15 15:18 07/20/15 Calcium Level 9.0 mg/dL (8.5-10.1) 07/20/15 15:18 07/20/15 Albumin 3.2 g/dL (3.4-5.0) L 07/20/15 15:18 07/20/15 Glucose Level 85 mg/dL (70-100) 07/20/15 15:18 07/20/15 Liver Function Panel: Alanine Aminotransferase (ALT/SGPT) 17 U/L (12-78) 07/20/15 15:18 07/20/15 Aspartate Amino Transf (AST/SGOT) 10 U/L (15-37) L 07/20/15 15:18 07/20/15 Coagulation Panel: No Data to Display Cardiac Panel: No Data to Display Arterial Blood Gas: No Data to Display Venous Blood Gas: No Data to Display Pancreas Panel: Lipase 72 U/L (73-393) L 07/20/15 15:18 07/20/15 Thyroid Panel: No Data to Display Infectious Disease: Coronavirus (COVID-19)(PCR) Negative (Negative) 08/19/20 10:00 08/19/20 Coronavirus 2019 Source Nasal/nares 08/19/20 10:00 08/19/20 Blood Cultures: No Data to Display Toxicology Panel: 2 No Data to Display Panel: Beta HCG, Quantitative 55384 mIU/mL (1-3) H 07/20/15 15:18 07/20/15 Anesthesia Assessment and Plan Anesthesia History Personal History: No History of Anesthesia Complications Family History: No Family History of Anesthesia Complications Exercise Tolerance Exercise Tolerance: Metabolic Equivalents>4 Pertinent Negatives Pertinent Negatives: No Symptoms of GERD, No Major Cardiovascular Symptoms or Complaints, No Major Pulmonary Symptoms or Complaints and No History of CVA/TIA Cardiac & Pulmonary Exam Cardiac Exam: Normal S1/S2 Heart Sounds Pulmonary Exam: Clear Bilateral Breath Sounds Airway Exam Known Difficult Airway: No Mallampati Class: 1 Mouth Opening: Normal (> 3cm) Thyromental Distance: Greater than 3 cm Neck Range of Motion: Full ROM Neck Circumference: Thick Teeth Condition: Normal Dentition ASA Classification ASA Score: ASA 1 Emergency Case?: No NPO Status NPO Status: NPO Clears >2 hours, Solids >8 hours Status Status: Negative HCG Anesthesia Plan Anesthesia Technique: General Anesthesia Airway Planned: Endotracheal Tube Monitors Used: Standard Monitors
--- NOTE | 2020-08-21 08:30 | FALL_PTH ---
PATIENT: Ashly Goss LOC: [facility] U#:[id number] AGE/SX: 24/F ROOM: RE08/21/[address]: Denise Engle DO : 1995 BED: DIS: 08/21/2020 SPEC #: [id number] RECD: 08/21/20 12:35 STATUS: KINGA REQ #: [id number] IBRAHIMA: 08/21/20 08:[address]: Dneise Engle DEPT: Surgical Specimen RECD BY: Joana Resendiz ENTERED: 08/21/20 12:36 SP TYPE: Fall OTHR DR: Roberta Leach Tissues: 1 - FALLOPIAN TUBE (STERILIZATION) 2 - FALLOPIAN TUBE (STERILIZATION) Procedures: GROSS AND MICRO LEVEL 2 Comments: [id number]
[2020-08-21] MEDS: Lactated Ringers 1,000 ML 30 ML IV (08:36)
--- NOTE | 2020-08-21 08:41 | ROE_ITS ---
Date of service: 08/21/20 Time of Service: 08:41 Operative Note Operative Note DATE OF PROCEDURE: 08/21/20 PRE-OP DIAGNOSIS: Undesired fertility POST-OP DIAGNOSIS: same PROCEDURE: Bilateral salpingectomy SURGEON: Denise Engle ASSISTING SURGEON: Yanique Haider ANESTHESIA TYPE: General LMA/ETT Refer to Anesthesia Record ESTIMATED BLOOD LOSS: 5 PATHOLOGY: other (Right and left fallopian tube) COMPLICATIONS: None Patient was transported to: PACU Patient's condition: stable Indications: Undesired fertility Findings: Normal-appearing fallopian tubes, ovaries, uterus. Adhesions of omentum to the anterior abdominal wall Procedure Description: After full informed consent was obtained, patient was taken the operating room with an IV running. She is placed in dorsal supine position and endotracheal intubation performed for the administration of general anesthesia with ease. At this point she was placed in the modified dorsolithotomy position and prepped and draped in usual sterile fashion. Exam under anesthesia revealed a uterus that was midline and mobile. Weighted speculum was placed into the vaginal vault and a single-tooth tenaculum used to grasp the anterior lip of the cervix. A ZUMI uterine manipulator was placed into the endometrial cavity for uterine manipulation. Speculum and tenaculum were both removed and attention was turned to the abdomen. Half percent Marcaine with epinephrine was infiltrated into the umbilical area and a vertical skin incision was made. The anterior abdominal wall was elevated and a varies needle inserted directly into the abdomen. With a maximum pressure of 15 mmHg of CO2 gas a pneumoperitoneum was created. At this point a Visiport with a 10 mm scope was placed directly into the abdomen under direct visualization. Abdomen was noted to be atraumatic. There was a small adhesion of omentum to the anterior abdominal wall. The adhesions of the omentum to the anterior abdominal wall was meticulously dissected away from the anterior abdominal wall and found to be hemostatic. Uterus was mobile and both fallopian tubes identified. At this point a second and third right and left lower quadrant trocar site was placed under direct visualization after infiltration wi th half percent Marcaine with epinephrine. Uterus was then elevated and attention was then turned to the right fallopian tube which was elevated and cautery transected with the LigaSure device. The right fallopian tube was removed from the abdomen. Attention was then turned to the left fallopian tube which was grasped and from fimbriated end to 2 insertion into the uterus the fallopian tube was cautery transected and removed. Again the fallopian tube was removed from the abdomen. At this point pedicles were inspected and found to be hemostatic and at this point the procedure was terminated. CO2 gas was released and all trochars were removed from the abdomen. The infraumbilical fascial incision was closed using 0 Vicryl suture in a simple interrupted fashion. Skin edges were reapproximated with 4-0 Monocryl suture and Steri-Strips were placed. ZUMI uterine manipulator was removed from the uterus and patient was returned to dorsal supine position. She was awoken from anesthesia with ease and taken to recovery room in stable condition. Complications: None Findings: Normal-appearing tubes, ovaries, uterus. Filmy adhesions of the omentum to the anterior abdominal wall EBL: 5 mL Pathology: Right and fallopian tube for examination.
[2020-08-21] MEDS: Ondansetron 4 MG/2 ML VIAL IVP (09:07)
--- NOTE | 2020-08-21 11:16 | W.ANESPOSTOP ---
Postoperative Evaluation Date, Time and Location Date Performed: 08/21/20 Time Performed: 11:17 Patient Location: Day Surgery Unit Vital Signs Most Recent Imported Vital Signs: Most Recent Vital Signs Temp Pulse Resp BP Pulse Ox 36 C L 74 16 120/79 94 08/21/20 10:23 08/21/20 10:23 08/21/20 10:23 08/21/20 10:23 08/21/20 10:23 Pain Score Most Recent Pain Score: Most Recent Pain Score Pain Level 6 08/21/20 10:23 Assessment Mental Status: Awake (Alert & Oriented to Patient Baseline) Airway and Respiratory Function: Patent airway with normal (patient baseline) respiratory exam Cardiovascular Function: Hemodynamically Stable Hydration Status: Adequately Hydrated Nausea & Vomiting: No Nausea or Vomiting Pain: Pt. Denies Any Pain Peripheral Nerve Block: Patient did not receive a nerve block
== END 2020-08-21 11:15 | disposition home or self-care (01) ==
PROVIDERS: PCP Nurse Practitioner Family; Visit Provider Obstetrics & Gynecology
PROC: (CPT 58661; principal; 2020-08-21 07:30)
DX: Z30.2 Encounter for sterilization (principal); Z98.51 Tubal ligation status
CPT/HCPCS: 58661; 88302; J0131; J1100; J1200; J1885; J2001; J2250; J2405